=== PATIENT | male | born 1980 | race African-American/Black ===

== ENCOUNTER 2018-12-07 05:23 | Emergency (ER) | payer SELFPAY, OTHER | END 2018-12-07 06:33 | disposition home or self-care (01) | LOC: FTE 06:33 | DX: S09.90XA Unspecified injury of head, initial encounter (principal); W20.8XXA Other cause of strike by thrown, projected or falling object, initial encounter; Y92.89 Other specified places as the place of occurrence of the external cause | CPT/HCPCS: 99282 ==